=== PATIENT | male | born 1965 | race Asian ===

== ENCOUNTER → 2018-05-28 | Outpatient (CLI) | payer MEDICARE, OTHER ==
--- NOTE | 2018-05-28 10:48 | Diagnostic Imaging Report ---
MRI of the left forefoot without contrast. History: Foot pain. Posterior tibial tendinitis. Pain not responding to conservative management. Swelling. Technique: Multiplanar multisequence MRI of the foot without contrast Comparison: None Findings: There is no acute fracture, subluxation or avascular necrosis. Minimal scattered degenerative changes are seen. There is minimal bone marrow edema in the proximal fourth and fifth metatarsals which is likely stress related. No ligamentous or tendon tear is seen. The visualized neurovascular bundles are intact. The visualized muscles are normal in size, signal intensity and morphology. Impression: Minimal bone marrow edema in the proximal fourth and fifth metatarsals likely stress related. No cortical fracture is seen. No ligamentous or tendon tear is seen. If indicated ankle MRI may be of benefit. Signed by: Dr. Everett Sabillon M.D. on 05/28/2018 10:44 AM
== END ==
LOC: MRI 08:42
PROVIDERS: ATTEND Podiatrist Foot & Ankle Surgery
DX: M79.672 Pain in left foot (principal); M79.89 Other specified soft tissue disorders